=== PATIENT | female | born 2005 | race Caucasian/White ===

== ENCOUNTER 2023-04-04 07:19 | Emergency (ER) | payer SELFPAY ==
[~2023-04-04] VITALS: Ht 160 cm; Wt 48.0 kg
[2023-04-04 07:23] VITALS: BP 116/59; PULSE 116; RESP 18; TEMP 98.7; O2SAT 100
[2023-04-04 09:11] LABS: CLARITY URINE CLOUDY (CLEAR); COLOR URINE YELLOW (YELLOW); KETONES URINE 3+ (NEGATIVE); LEUKOCYTE ESTERASE URINE NEGATIVE (NEGATIVE); NITRITE URINE POSITIVE (NEGATIVE); OCCULT BLOOD URINE TRACE (NEGATIVE); PH URINE 5.5 (4.5-8.0); PROTEIN URINE 1+ (NEGATIVE); SPECIFIC GRAVITY URINE 1.022 (1.005-1.030); UROBILINOGEN URINE 0.2 E.U./dL (0.2-1.0)
== END 2023-04-04 08:51 | disposition left against medical advice (07) ==
LOC: ER 07:36
DX: Z53.21 Procedure and treatment not carried out due to patient leaving prior to being seen by health care provider (principal); I49.9 Cardiac arrhythmia, unspecified
CPT/HCPCS: 81003; 81025; 93005; 99281